=== PATIENT | female | born 1950 | race Caucasian/White ===

== ENCOUNTER 2022-02-06 08:14 | Day surgery (SDC) | payer MEDICARE ==
[2022-02-02 12:21] VITALS: BMI 23.9
[2022-02-06 08:54] VITALS: TEMP 97.4
[2022-02-06] MEDS ORDERED: LACTATED RINGERS 1,000 ML IV ONE (08:55)
[2022-02-06] MEDS ORDERED: PROPOFOL 10 MG/ML 20 ML VIAL IV ONE (09:30)
[2022-02-06] MEDS ORDERED: LACTATED RINGERS 1,000 ML IV SCH (09:38)
[2022-02-06] MEDS ORDERED: LIDOCAINE 1% (10MG/ML) FOR IV START INTRADERMA PRN (09:38)
--- NOTE | 2022-02-06 09:55 | P.PCN ---
Date of Procedure: 02/06/22 Procedure(s) Performed: BRIEF HISTORY: Patient is a 71-year-old pleasant white female scheduled for an elective colonoscopy as a part of screening for colon cancer. PROCEDURE PERFORMED: Colonoscopy with biopsy. PREOPERATIVE DIAGNOSIS: Screening for colon cancer. IV sedation per Anesthesia. PROCEDURE: After informed consent was obtained, the patient, was brought into the endoscopy unit. IV sedation was administered by Anesthesia under continuous monitoring. Digital rectal examination was normal. Initially the Olympus CF-160 flexible video colonoscope was then inserted in the rectum, gradually advanced into the cecum without any difficulty. Careful examination was performed as the scope was gradually being withdrawn. Ileocecal valve and the appendiceal orifice were visualized and appeared normal. Prep was excellent. Mucosa of the cecum, ascending colon, transverse colon, descending colon, appeared normal. In the sigmoid: There were patchy areas of colitis noted between 20-40 cm from the anal verge with mucosal erythema but no erosions or ulcerations suspicious for diverticular related colitis and biopsies were done from this area. Rest of the sigmoid colon, and rectum appeared normal. Retroflexion was performed in the rectum and no lesions were seen. The patient tolerated the procedure well. IMPRESSION: Scattered sigmoidal diverticulosis Patchy areas of erythema noted in the sigmoid colon extending from 20-40 cm from the anal verge status post multiple biopsies to evaluate for colitis No evidence of colorectal neoplasia RECOMMENDATIONS: Findings of this examination were discussed with the patient as well as a family. She was advised to follow with the biopsy results. Recommend repeat colonoscopy in 10 years.
[2022-02-06 10:04] VITALS: RESP 18
[2022-02-06 10:34] VITALS: BP 130/80; PULSE 80
== END 2022-02-06 10:38 | disposition home or self-care (01) ==
LOC: ORWHC2ENDO 08:14
PROVIDERS: ATTEND Internal Medicine Gastroenterology
DX: Z12.11 Encounter for screening for malignant neoplasm of colon (principal); K57.30 Diverticulosis of large intestine without perforation or abscess without bleeding; I10 Essential (primary) hypertension; E78.5 Hyperlipidemia, unspecified; E07.9 Disorder of thyroid, unspecified; Z79.890 Hormone replacement therapy; Z79.899 Other long term (current) drug therapy; Z98.890 Other specified postprocedural states; Z98.891 History of uterine scar from previous surgery; Z98.51 Tubal ligation status; Z90.89 Acquired absence of other organs
CPT/HCPCS: 88305; 45380; J2704